=== PATIENT | male | born 1955 | race Caucasian/White ===

== ENCOUNTER 2021-12-08 15:40 | Emergency (ER) | payer OTHER ==
[~2021-12-08] VITALS: Ht 180.3 cm; Wt 95.3 kg
[2021-12-08 15:40] VITALS: BP_SYST 150
--- NOTE | 2021-12-08 15:40 | NUR ---
BROUGHT IN BY [facility] AND TRIAGED. REPORT GIVEN TO NAVYA
--- NOTE | 2021-12-08 16:00 | NUR ---
RECEIVED PT FROM RUFINO WOODS. PT BIBS WITH C/O GENERALIZED WEAKNESS X1 DAYS. PT IS AAOX4. RESP E/U. ON R/A. DENIES N/V/D/C. SKIN INTACT, NO EDEMA. DISTAL PULSES STRONG. DENIES PAIN. SIDERAILS UP X2.
[2021-12-08 17:17] LABS: BASOPHILS % (AUTO) 0.2 % (0.0-2.0); HEMATOCRIT 41.3 % (36-54); LYMPHOCYTES # (AUTO) 0.3 K/uL (1.0-5.5); LYMPHOCYTES % (AUTO) 4.7 % (20.5-51.5); MEAN CORPUSCULAR VOLUME 82 fL (79.0-98.0); MONOCYTES # (AUTO) 0.5 K/uL (0.0-1.0); MONOCYTES % (AUTO) 7.1 % (1.7-9.3); NEUTROPHILS # (AUTO) 6.3 K/uL (1.8-7.7); PLATELET COUNT (AUTO) 190 K/uL (130-430); RED BLOOD CELL COUNT(AUTO) 5.06 MIL/uL (4.2-6.2); RED CELL DISTRIBUTION WIDTH 13.9 % (9.0-15.0); WHITE BLOOD COUNT (AUTO) 7.1 K/uL (4.8-10.8)
[2021-12-08 17:29] LABS: ANION GAP 9 (5-15); CALCIUM 9.1 mg/dL (8.4-11.0); CHLORIDE 99 mmol/L (98-107); CREATININE 1.02 mg/dL (0.55-1.30); GLUCOSE 133 mg/dL (70-99); POTASSIUM 3.9 mmol/L (3.5-5.1); UREA NITROGEN, BLOOD 20 mg/dL (8-21)
[2021-12-08 17:38] LABS: ALANINE AMINOTRANSFERASE 71 U/L (12-78); ALBUMIN 3.4 g/dL (3.4-4.8); ASPARTATE AMINOTRANSFERASE 55 U/L (10-37); TOTAL BILIRUBIN 0.6 mg/dL (0.0-1.0)
[2021-12-08 17:39] LABS: GFR AFRICAN AMERICAN 94 mL/min (>90)
[2021-12-08] MEDS ORDERED: NACL 0.9% 1,000 ML IV ONE (18:45)
--- NOTE | 2021-12-08 18:49 | NUR ---
URINE OBTAINED AND SENT TO LAB, IVF INITIATED.
--- NOTE | 2021-12-08 19:26 | NUR ---
ENDORSED ALL CARE TO RUFINO FUNES. ALL QUESTIONS AND CONCERNS ADDRESSED.
--- NOTE | 2021-12-08 19:29 | NUR ---
COVID and Flu swab dropped off at lab at 6:05
[2021-12-08] MEDS ORDERED: ONDA-8 TL (19:45)
[2021-12-08 20:20] VITALS: BP_SYST 132
== END 2021-12-08 20:20 | disposition home or self-care (01) ==
LOC: SED 15:40
DX: B34.9 Viral infection, unspecified (principal); R53.1 Weakness; R11.0 Nausea; I10 Essential (primary) hypertension; Z79.899 Other long term (current) drug therapy; Z20.822 Contact with and (suspected) exposure to COVID-19
CPT/HCPCS: 99284; 96360; 71045; 87426; 80053; 85025; 87040; 84484; 36415; 81002; 83605; 87804 ×2; J7030

== ENCOUNTER 2023-01-19 06:16 | Day surgery (SDC) | payer OTHER ==
[~2023-01-19] VITALS: Ht 180.3 cm; Wt 98.4 kg
[~2023-01-19 06:16] MED LIST: ONDA-8 TL
[2023-01-19] MEDS ORDERED: ACETAMINOPHEN I.V. 1000 MG 100 ML IV ONE (07:33)
[2023-01-19] MEDS ORDERED: fentaNYL CITRATE/PF 100 MCG/2 ML AMP ONE ×2 (07:33→09:50)
[2023-01-19] MEDS ORDERED: MIDAZOLAM HCL 2 MG/2 ML VIAL (VERSED) ONE (07:33)
[2023-01-19 08:22] VITALS: O2SAT 96
[2023-01-19] MEDS ORDERED: PROPOFOL 200MG/ 20ML VIAL (DIPRIVAN) IV ONE (08:30)
[2023-01-19] MEDS ORDERED: ePHEDrine sulfate 50 MG/ML VIAL ONE (08:30)
[2023-01-19] MEDS ORDERED: SEVOFLURANE 15 MIN GAS INH ONE (08:30)
[2023-01-19] MEDS ORDERED: NS IRRIG SOLN 1000 ML IR ONE (08:30)
[2023-01-19] MEDS ORDERED: ROCURONIUM BROMIDE 10 MG/ML (ZEMURON) ONE (08:30)
[2023-01-19] MEDS ORDERED: BUPIVACAINE /PF 0.25% 30 ML VIAL INJ ONE (08:30)
[2023-01-19] MEDS ORDERED: SUGAMMADEX SODIUM 200 MG/2 ML VIAL IV ONE (08:30)
[2023-01-19] MEDS ORDERED: KETOROLAC TROMETHAMINE 30 MG VIAL ONE (08:30)
[2023-01-19] MEDS ORDERED: ONDANSETRON HCL 4 MG/2 ML VIAL ONE (08:30)
[2023-01-19 18:26] VITALS: BP_SYST 127; PULSE 75; RESP 17
== END 2023-01-19 13:35 | disposition home or self-care (01) ==
LOC: SDS 06:16 → SMU 06:16 → SDS 13:35
PROVIDERS: ATTEND Surgery
DX: K40.90 Unilateral inguinal hernia, without obstruction or gangrene, not specified as recurrent (principal); R10.2 Pelvic and perineal pain; K42.9 Umbilical hernia without obstruction or gangrene; I10 Essential (primary) hypertension; E78.5 Hyperlipidemia, unspecified; Z79.899 Other long term (current) drug therapy
CPT/HCPCS: 87081; 49650; C1781; J3490 ×2; J1885; J3465; J2405; J2704; J3010; C1727; J0131; S2900